=== PATIENT | female | born 1940 | race Asian ===

== ENCOUNTER 2016-04-07 13:02 | Outpatient (CLI) | payer OTHER, MEDICARE | END 2016-04-07 19:24 | disposition home or self-care (01) | LOC: RAD 13:02 | DX: M54.5 Low back pain (principal) ==

== ENCOUNTER 2016-06-19 17:41 | Outpatient (CLI) | payer OTHER, MEDICARE | END 2016-06-19 21:11 | disposition home or self-care (01) | LOC: LAB 17:41 | DX: I10 Essential (primary) hypertension (principal); G47.33 Obstructive sleep apnea (adult) (pediatric); G25.81 Restless legs syndrome; E66.8 Other obesity; N39.0 Urinary tract infection, site not specified; G47.09 Other insomnia | CPT/HCPCS: 81000; 87088 ==

== ENCOUNTER 2016-06-24 08:32 | Outpatient (CLI) | payer OTHER, MEDICARE ==
[2016-06-24 09:37] LABS: PLATELET COUNT 248 K/uL (152-353)
[2016-06-24 10:13] LABS: POTASSIUM 8.3 mmol/L (3.6-5.2)
== END 2016-06-24 19:13 | disposition home or self-care (01) ==
LOC: LAB 08:32
PROVIDERS: Family Medicine
DX: I10 Essential (primary) hypertension (principal); G47.09 Other insomnia; G47.33 Obstructive sleep apnea (adult) (pediatric); G25.81 Restless legs syndrome; E66.8 Other obesity; E55.9 Vitamin D deficiency, unspecified
CPT/HCPCS: 80053; 80061; 81000; 82043; 82306; 82570; 83735; 84439; 84443; 84550; 85027

== ENCOUNTER 2016-11-21 11:14 | Outpatient (CLI) | payer OTHER, MEDICARE ==
[2016-11-21 11:47] LABS: PLATELET COUNT 236 K/uL (152-353)
[2016-11-21 12:10] LABS: POTASSIUM 4.3 mmol/L (3.6-5.2)
== END 2016-11-21 19:07 | disposition home or self-care (01) ==
LOC: LABW 11:14
PROVIDERS: Family Medicine
DX: I10 Essential (primary) hypertension (principal); K59.09 Other constipation; R31.9 Hematuria, unspecified; N28.89 Other specified disorders of kidney and ureter; E55.9 Vitamin D deficiency, unspecified
CPT/HCPCS: 36415; 80053; 80061; 82306; 83735; 84439; 84443; 84550; 85027

== ENCOUNTER 2016-11-24 14:25 | Outpatient (CLI) | payer OTHER, MEDICARE | END 2016-11-24 15:25 | disposition home or self-care (01) | LOC: MAMMO 14:25 | DX: Z12.31 Encounter for screening mammogram for malignant neoplasm of breast (principal) | CPT/HCPCS: G0202-TC ==

== ENCOUNTER 2016-12-04 08:20 | Outpatient (CLI) | payer OTHER, MEDICARE | END 2016-12-04 09:20 | disposition home or self-care (01) | LOC: LABW 08:20 | DX: R73.03 Prediabetes (principal); R92.8 Other abnormal and inconclusive findings on diagnostic imaging of breast | CPT/HCPCS: 36415; 83036 ==

== ENCOUNTER 2016-12-17 13:24 | Outpatient (CLI) | payer OTHER, MEDICARE | END 2016-12-17 15:00 | disposition home or self-care (01) | LOC: MAMMO 13:24 | DX: R92.8 Other abnormal and inconclusive findings on diagnostic imaging of breast (principal); Z78.0 Asymptomatic menopausal state; N18.3 Chronic kidney disease, stage 3 (moderate) ==

== ENCOUNTER 2016-12-19 14:18 | Outpatient (CLI) | payer OTHER, MEDICARE | END 2016-12-19 19:17 | disposition home or self-care (01) | LOC: RESP 14:18 | DX: I49.8 Other specified cardiac arrhythmias (principal) | CPT/HCPCS: 93005 ==

== ENCOUNTER 2017-06-16 14:10 | Outpatient (CLI) | payer OTHER, MEDICARE | END 2017-06-16 18:00 | disposition home or self-care (01) | LOC: MAMMO 14:10 | DX: R92.8 Other abnormal and inconclusive findings on diagnostic imaging of breast (principal) ==

== ENCOUNTER 2020-05-17 12:53 | Outpatient (CLI) | payer OTHER | END 2020-05-17 23:12 | disposition home or self-care (01) | LOC: RAD 12:53 | PROVIDERS: ATTEND Physician Assistant | DX: M54.5 Low back pain (principal) ==